=== PATIENT | male | born 1965 | race Caucasian/White ===

== ENCOUNTER → 2020-10-13 | Day surgery (SDC) | payer MEDICARE, OTHER ==
[~2020-10-13] VITALS: Ht 181.6 cm; Wt 102.0 kg
[~2020-10-13] MED LIST: ASCORBIC ACID500 MG PO; AVAPRO300 MG PO; CLARITIN10 MG PO; IRON325 M1 PO; LOVAZA1 GM PO; NORVASC 5MG TABL5 MG PO; SINGULAIR10 MG PO; VITAMIN D325 MC2 PO; ZINC50 MG PO
[2020-10-13 08:55] LABS: HCT 43.6 % (42.0-52.0); HGB 14.9 g/dl (13.2-18.0); MCH 34.3 pg (25.0-31.0); MCHC 34.2 g/dL (32.0-36.0); MCV 100.5 fL (78.0-100.0); MPV 10.1 fL (6.0-9.5); RBC 4.34 M/uL (4.70-6.00); RDW 11.5 % (11.5-14.0); WBC 6.3 K/uL (4.0-10.5)
[2020-10-13 09:09] LABS: POTASSIUM 3.9 mmol/L (3.5-5.1)
== END | disposition home or self-care (01) ==
LOC: FAS 07:25
PROVIDERS: Anesthesiology; Legal Medicine
DX: M75.102 Unspecified rotator cuff tear or rupture of left shoulder, not specified as traumatic (principal); M19.012 Primary osteoarthritis, left shoulder; M75.42 Impingement syndrome of left shoulder; E66.9 Obesity, unspecified; I10 Essential (primary) hypertension; G47.30 Sleep apnea, unspecified; Z68.38 Body mass index [BMI] 38.0-38.9, adult
CPT/HCPCS: 36415; 80048; C1713; J0171; J0690; J1100; J1644; J2250; J2405; J2704; J2710; J2795; J3010; J7120